=== PATIENT | female | born 1990 | race Caucasian/White ===

== ENCOUNTER 2023-10-27 09:04 | Outpatient (CLI) | payer OTHER, SELFPAY ==
--- NOTE | 2023-10-27 09:15 | CRLHL7_ITS ---
For Patients: As a result of the Century Cures Act, medical imaging exams and procedure reports are released immediately into your electronic medical record. You may view this report before your referring provider. If you have questions, please contact your health care provider. Indication: Right hip pain Procedure : Informed consent was obtained. The site was marked. Time-out was performed. The skin of the right hip was cleansed with ChloraPrep. A sterile drape was placed. 8 cc of 1 percent lidocaine was administered for superficial anesthesia. Subsequently a 22 gauge spinal needle was introduced into the right hip joint under intermittent fluoroscopic guidance. Injection of 2 cc nonionic Omnipaque 240 contrast confirmed intra-articular location. Subsequently 11 cc of dilute gadolinium were injected. The needle was removed and hemostasis achieved with direct pressure. A dressing was placed. The patient tolerated the procedure well without immediate complication and was immediately sent to MRI for imaging. Total fluoroscopy time 19 seconds. Impression: Successful fluoroscopically guided right hip arthrogram for MRI. Dictated by Julius Ayala MD @ 10/27/2023 11:19:15 AM (Electronically Signed)
--- NOTE | 2023-10-27 10:15 | MR_ITS ---
[address] [address] Phone:?[phone] Fax:?[phone] Referring Physician Information: Pola Dupree M.D. [address] [facility] [address] Phone:?[phone] Fax:?[phone] Patient:Sarika Alford D.O.B:?1990 Sex:?Female Phone:?[phone] [facility] MRN:?[id number] Exam Date:?10/27/2023 EXAM: MR ARTHROGRAM of the RIGHT HIP CLINICAL INFORMATION: Female, 33 years old, with right hip pain. INDICATION: Evaluate hip pain. PRIOR SURGERY: None reported. PLAIN FILMS: None available. COMPARISONS: No prior MRIs available. TECHNICAL INFORMATION: Exam performed after injection of gadolinium-based contrast into the right hip joint, reported separately. Using a 1.5T MR scanner: coronals: PD, T2, T1FS sagittals: PD, T2, T1FS axial obliques: PD axials: PDFS coronals of pelvis: T1, STIR SEDATION: None. CONTRAST: No intravenous contrast was administered. FINDINGS: Hip joint: Gadolinium-based contrast distends the hip joint, reflecting successful arthrography. No chondromalacia or focal full-thickness defect of the femoral head or acetabular articular cartilage. No intra-articular bodies. Labrum: Mild fraying and irregularity of the anterosuperior labrum. Additionally, there is partial-thickness tearing at the base of the superior labrum over a length of 1.0 cm (coronal PD series 6 images 13-16). No paralabral cyst. Proximal femur: No femoral occult fracture, stress injury, marrow edema or osteonecrosis. Normal femoral head/neck junction offset. No fibrocystic change. No convincing femoral cam morphology. Based on oblique axial series 8 image 15 at approximately 1:30 o'clock anterosuperiorly, the maximum femoral alpha angle measures approximately 50?. Acetabulum: No subchondral cysts, periacetabular ossicles or marrow edema. Version: There appears decreased cranial acetabular anteversion without convincing retroversion. Coverage: Right lateral center edge (CE) angle measures approximately 27? (normal 25?-39?), midline coronal series 6 image 14, corrected for pelvic obliquity. Ligamentum teres: Ligamentum teres is intact and unremarkable. Iliofemoral ligament: The iliofemoral ligament is intact without thickening. Pelvis osseous structures: Sacrum: No stress/insufficiency fractures or marrow edema/pathology. Sacroiliac joints: No demonstrable sacroiliitis. Pubic rami: No stress/insufficiency fractures or marrow edema/pathology. Symphysis pubis: No evidence of osteitis pubis. Myotendinous structures: Gluteus abductors: No convincing insertional tendinopathy or tear of gluteus minimus or medius. Adductors: No demonstrable tendinopathy or strain/tear. Hamstrings: Intact semimembranosus, semitendinosus and biceps femoris tendons, without tendinopathy or tear. Flexors: Intact iliopsoas and rectus femoris, without strain/tear. External rotators: Intact, without demonstrable ischiofemoral impingement. Gluteal aponeurotic fascia and IT band: Unremarkable. Bursae: No demonstrable trochanteric, iliopsoas, or iliopectineal bursitis. Intrapelvic contents: Free fluid: No free fluid seen within the pelvis. Pelvic viscera: No discrete intrapelvic mass is identified. Lymph nodes: No lymphadenopathy by MRI size criteria. Neurovascular structures: No discrete cyst, mass or other compression upon the portions visualized of sciatic or femoral nerves. Lumbar spine:?The visualized portions of the lower lumbar spine are unremarkable. IMPRESSION: 1. Partial-thickness chondrolabral junction tearing of the superior labrum measuring 1.0 cm. No paralabral cyst. There is also fraying and irregularity of the anterosuperior labrum. 2. No cam or pincer morphology. 3. No full-thickness chondral defect or evidence of hip joint osteoarthritis. 4. No fracture or osseous stress reaction. 5. No myotendinous abnormality. BC Electronically signed on 10/27/2023 1:45:00 PM by Bentley Sun M.D.
== END 2023-10-27 09:05 | disposition home or self-care (01) ==
PROVIDERS: PCP Family Medicine; Visit Provider Family Medicine
DX: M25.551 Pain in right hip (principal); S43.431A Superior glenoid labrum lesion of right shoulder, initial encounter; M25.851 Other specified joint disorders, right hip; M76.01 Gluteal tendinitis, right hip
CPT/HCPCS: 27093; 73525; 73722; 77002; A9575; Q9966

== ENCOUNTER 2024-02-07 15:45 | Outpatient (RCR) | payer OTHER, SELFPAY | END 2024-02-07 16:12 | disposition home or self-care (01) | PROVIDERS: PCP Family Medicine; Visit Provider Family Medicine | DX: M25.851 Other specified joint disorders, right hip (principal); S73.192S Other sprain of left hip, sequela; Z51.89 Encounter for other specified aftercare | CPT/HCPCS: 97110; 97112; 97140; 97161 ==

== ENCOUNTER 2024-05-07 15:45 | Outpatient (RCR) | payer OTHER, SELFPAY | END 2024-06-04 10:48 | disposition home or self-care (01) | PROVIDERS: PCP Family Medicine; Visit Provider Physician Assistant | DX: M54.12 Radiculopathy, cervical region (principal); M25.511 Pain in right shoulder; M54.2 Cervicalgia; Z51.89 Encounter for other specified aftercare | CPT/HCPCS: 97110; 97140; 97161 ==